=== PATIENT | male | born 1970 | race Caucasian/White ===

== ENCOUNTER 2019-04-13 21:19 | Observation (INO) ==
[2019-04-13] MEDS ORDERED: 0.9 % Sodium Chloride 1,000 ML IVC ONE (21:50)
[2019-04-13] MEDS ORDERED: *HR* Promethazine 25 MG/ML VIAL IVP ONE (21:50)
[2019-04-13 22:30] LABS: Basophils % 0.3 %; Eosinophils % 0.2 %; Hematocrit 38.4 % (37.5-50.1); Hemoglobin 11.9 g/dL (12.9-16.9); Immature Granulocytes % 0.3 % (0-4); Lymphocytes # 1.6 K/mcL (0.6-4.6); Lymphocytes % 17.9 %; Mean Corpuscular Hemoglobin 27.7 pg (28.0-33.3); Mean Corpuscular Volume 89.5 fL (83.0-100.0); Mean Platelet Volume 11.7 fL (9.4-12.4); Monocytes # 0.9 K/mcL (0.0-1.3); Monocytes % 10.5 %; Neutrophils # 6.2 K/mcL (1.6-8.9); Platelet Count 242 K/mcL (140-400); Red Blood Count 4.29 M/mcL (4.19-5.50); Red Cell Distribution Width 14.4 % (11.5-14.5); Segmented Neutrophils % 70.8 %; White Blood Count 8.8 K/mcL (4.3-11.1)
[2019-04-13] MEDS ORDERED: Isovue-370 500 ML BOTTLE IVP ONE (22:48)
[2019-04-13 22:51] LABS: Alanine Aminotransferase 21 Units/L (7-52); Albumin/Globulin Ratio 1.1 (1.1-2.2); Alkaline Phosphatase 143 Units/L (34-104); Aspartate Amino Transferase 19 Units/L (13-39); BUN/Creatinine Ratio 25 (6-26); Bilirubin,Direct 0.2 mg/dL (0.0-0.2); Bilirubin,Indirect 0.3 mg/dL (0.0-1.0); Bilirubin,Total 0.5 mg/dL (0.3-1.0); Blood Urea Nitrogen 28 mg/dL (6-20); Calcium 9.4 mg/dL (8.6-10.3); Carbon Dioxide 27 mEq/L (23-29); Chloride 99 mEq/L (98-107); Globulin 3.5 g/dL (2.4-3.5); Glucose 126 mg/dL (70-105); Lipase 15 Units/L (11-82); Magnesium 1.9 mg/dL (1.6-2.6); Osmolality,Calculated 285 (280-300); Phosphorous 4.8 mg/dL (2.7-4.5); Potassium 5.2 mEq/L (3.5-5.1); Sodium 134 mEq/L (136-145); Total Protein 7.5 g/dL (6.4-8.9); eGFR For African Americans > 60 (> 60); eGFR For Non-African Americans > 60 (> 60)
[2019-04-13 23:05] LABS: Thyroid Stimulating Hormone 1.999 mcIU/mL (0.340-5.600)
[2019-04-13] MEDS ORDERED: Aspirin 81 MG TAB.CHEW PO ONE (23:42)
[2019-04-14 00:40] LABS: Bilirubin,Urine Negative (Negative); Blood,Urine Negative (Negative); Clarity,Urine Clear (Clear); Color,Urine Yellow (Yellow); Glucose,Urine (UA) Normal (Normal); Ketones,Urine Negative (Negative); Leukocyte Esterase,Urine Negative (Negative); Nitrite,Urine Negative (Negative); Protein,Urine Trace mg/dL (Neg-Trace); Urobilinogen,Urine Normal (Normal)
[2019-04-14] MEDS ORDERED: Acetaminophen 325 MG TABLET PO PRN (01:57)
[2019-04-14] MEDS ORDERED: 0.9 % Sodium Chloride 1,000 ML IVC SCH (02:15)
[2019-04-14 02:39] LABS: Amphetamine Screen,Urine Negative ng/mL (Cutoff=1000); Barbiturate Screen,Urine Negative ng/mL (Cutoff=200); Benzodiazepines Screen,Urine Negative ng/mL (Cutoff=200); Cannabinoid Screen,Urine Negative ng/mL (Cutoff = 50); Cocaine Screen,Urine Negative ng/mL (Cutoff= 300); Opiate Screen,Urine Negative ng/mL (Cutoff=300); Phencyclidine Screen,Urine Negative ng/mL (Cutoff=25)
[2019-04-14] MEDS ORDERED: *HR* Heparin 5,000 UNIT/ML VIAL SQ SCH (06:00)
[2019-04-14 08:04] LABS: BUN/Creatinine Ratio 26 (6-26); Blood Urea Nitrogen 23 mg/dL (6-20); Calcium 8.7 mg/dL (8.6-10.3); Carbon Dioxide 28 mEq/L (23-29); Chloride 99 mEq/L (98-107); Glucose 99 mg/dL (70-105); Magnesium 1.9 mg/dL (1.6-2.6); Osmolality,Calculated 290 (280-300); Potassium 4.6 mEq/L (3.5-5.1); Sodium 138 mEq/L (136-145); eGFR For African Americans > 60 (> 60); eGFR For Non-African Americans > 60 (> 60)
[2019-04-14 08:07] LABS: Troponin I 0.04 ng/mL (< 0.04)
[2019-04-14] MEDS: levETIRAcetam 250 MG TABLET PO SCH ×2 (08:44→19:59)
[2019-04-14] MEDS ORDERED: *HR* Heparin 5,000 UNIT/ML VIAL IVP PRN ×2 (12:04)
[2019-04-14 13:52] LABS: Red Cell Distribution Width 14.5 % (11.5-14.5)
[2019-04-14 13:54] LABS: INR 1.3; Prothrombin Time 14.4 Seconds (9.4-12.1)
[2019-04-14 13:57] LABS: Hematocrit 34.4 % (37.5-50.1); Hemoglobin 10.8 g/dL (12.9-16.9); Mean Corpuscular HGB Conc 31.4 g/dL (31.6-35.5); Mean Corpuscular Hemoglobin 27.8 pg (28.0-33.3); Mean Corpuscular Volume 88.4 fL (83.0-100.0); Mean Platelet Volume 12.5 fL (9.4-12.4); Platelet Count 204 K/mcL (140-400); Red Blood Count 3.89 M/mcL (4.19-5.50); White Blood Count 6.2 K/mcL (4.3-11.1)
[2019-04-14 14:05] LABS: Estimated Average Glucose 131 mg/dl
[2019-04-14] MEDS: Heparin 25,000 UNIT/250 ML D5W 25,000 UNIT/250 ML IV.SOLN IVC SCH (14:09)
[2019-04-14] MEDS: Ondansetron 4 MG/2 ML VIAL IVP PRN (18:49)
[2019-04-14] MEDS ORDERED: rOPINIRole 0.25 MG TABLET PO SCH (21:00)
[2019-04-14] MEDS: Nystatin POWDER 30 GM BOTTLE TP SCH (21:55)
[2019-04-15] MEDS: Heparin 25,000 UNIT/250 ML D5W 25,000 UNIT/250 ML IV.SOLN IVC SCH (02:30)
[2019-04-15 05:21] LABS: Hematocrit 33.4 % (37.5-50.1); Hemoglobin 10.5 g/dL (12.9-16.9); Mean Corpuscular HGB Conc 31.4 g/dL (31.6-35.5); Mean Corpuscular Hemoglobin 27.6 pg (28.0-33.3); Mean Corpuscular Volume 87.9 fL (83.0-100.0); Mean Platelet Volume 12.8 fL (9.4-12.4); Platelet Count 191 K/mcL (140-400); Red Cell Distribution Width 14.5 % (11.5-14.5); White Blood Count 6.6 K/mcL (4.3-11.1)
[2019-04-15 05:41] LABS: BUN/Creatinine Ratio 22 (6-26); Blood Urea Nitrogen 17 mg/dL (6-20); Calcium 8.9 mg/dL (8.6-10.3); Carbon Dioxide 28 mEq/L (23-29); Chloride 100 mEq/L (98-107); Glucose 87 mg/dL (70-105); Osmolality,Calculated 281 (280-300); Potassium 4.1 mEq/L (3.5-5.1); Sodium 135 mEq/L (136-145); eGFR For African Americans > 60 (> 60); eGFR For Non-African Americans > 60 (> 60)
[2019-04-15] MEDS: levETIRAcetam 250 MG TABLET PO SCH ×2 (08:15→20:10)
[2019-04-15] MEDS: Aspirin Enteric Coated 81 MG Tablet PO SCH (08:15)
[2019-04-15] MEDS: Nystatin POWDER 30 GM BOTTLE TP SCH ×2 (08:18→20:29)
[2019-04-15] MEDS: Gabapentin 300 MG CAPSULE PO SCH (17:26)
[2019-04-15] MEDS: Ondansetron 4 MG/2 ML VIAL IVP PRN (18:40)
[2019-04-16] MEDS: Heparin 25,000 UNIT/250 ML D5W 25,000 UNIT/250 ML IV.SOLN IVC SCH ×3 (01:02→21:21)
[2019-04-16 02:02] LABS: Hematocrit 36.5 % (37.5-50.1); Hemoglobin 11.4 g/dL (12.9-16.9); Mean Corpuscular HGB Conc 31.2 g/dL (31.6-35.5); Mean Corpuscular Hemoglobin 27.2 pg (28.0-33.3); Mean Corpuscular Volume 87.1 fL (83.0-100.0); Mean Platelet Volume 12.8 fL (9.4-12.4); Platelet Count 221 K/mcL (140-400); Red Blood Count 4.19 M/mcL (4.19-5.50); Red Cell Distribution Width 14.4 % (11.5-14.5); White Blood Count 7.1 K/mcL (4.3-11.1)
[2019-04-16 02:21] LABS: BUN/Creatinine Ratio 19 (6-26); Blood Urea Nitrogen 14 mg/dL (6-20); Calcium 9.4 mg/dL (8.6-10.3); Carbon Dioxide 27 mEq/L (23-29); Chloride 100 mEq/L (98-107); Glucose 93 mg/dL (70-105); Osmolality,Calculated 284 (280-300); Sodium 137 mEq/L (136-145); eGFR For African Americans > 60 (> 60); eGFR For Non-African Americans > 60 (> 60)
[2019-04-16] MEDS ORDERED: Melatonin 3 MG TABLET PO PRN (04:27)
[2019-04-16] MEDS: Gabapentin 300 MG CAPSULE PO SCH ×2 (07:38→20:55)
[2019-04-16] MEDS: Aspirin Enteric Coated 81 MG Tablet PO SCH (07:38)
[2019-04-16] MEDS: levETIRAcetam 250 MG TABLET PO SCH ×2 (07:38→20:54)
[2019-04-16] MEDS: Nystatin POWDER 30 GM BOTTLE TP SCH ×2 (07:50→20:55)
[2019-04-16] MEDS ORDERED: Gabapentin 300 MG CAPSULE PO ONE ×2 (12:00)
[2019-04-16] MEDS: *HR* OxyCODONE Immed Rel 5 MG TABLET PO PRN ×2 (12:26→20:58)
[2019-04-16] MEDS ORDERED: Heparin 1,000 UNITS/500 mL 500 ML ONE (16:05)
[2019-04-16] MEDS ORDERED: ISOVUE-370 200 ML INFUS..BTL ONE (16:05)
[2019-04-16] MEDS ORDERED: 0.9 % Sodium Chloride 1,000 ML ONE (16:05)
[2019-04-16] MEDS ORDERED: Nitroglycerin 1,000 MCG/10 ML VIAL IV ONE (16:05)
[2019-04-16] MEDS ORDERED: *HR* Heparin 10,000 UNIT/10 ML VIAL ONE (16:05)
[2019-04-16] MEDS ORDERED: *HR* Midazolam HCl 2 MG/2 ML VIAL ONE (16:51)
[2019-04-16] MEDS ORDERED: *HR* FentaNYL (PF) 100 MCG/2 ML VIAL ONE (16:51)
[2019-04-16] MEDS ORDERED: Verapamil 5 MG/2 ML VIAL ONE (17:04)
[2019-04-17 03:17] LABS: Hematocrit 34.5 % (37.5-50.1); Hemoglobin 11.6 g/dL (12.9-16.9); Mean Corpuscular HGB Conc 33.6 g/dL (31.6-35.5); Mean Corpuscular Hemoglobin 27.8 pg (28.0-33.3); Mean Corpuscular Volume 82.7 fL (83.0-100.0); Platelet Count 239 K/mcL (140-400); Red Blood Count 4.17 M/mcL (4.19-5.50); Red Cell Distribution Width 14.4 % (11.5-14.5); White Blood Count 6.7 K/mcL (4.3-11.1)
[2019-04-17 03:24] LABS: BUN/Creatinine Ratio 16 (6-26); Blood Urea Nitrogen 13 mg/dL (6-20); Calcium 8.6 mg/dL (8.6-10.3); Carbon Dioxide 26 mEq/L (23-29); Chloride 102 mEq/L (98-107); Glucose 95 mg/dL (70-105); Osmolality,Calculated 286 (280-300); Potassium 4.1 mEq/L (3.5-5.1); Sodium 138 mEq/L (136-145); eGFR For African Americans > 60 (> 60); eGFR For Non-African Americans > 60 (> 60)
[2019-04-17] MEDS: *HR* OxyCODONE Immed Rel 5 MG TABLET PO PRN ×2 (03:40→09:54)
[2019-04-17 07:18] VITALS: BP 147/62
[2019-04-17] MEDS: Gabapentin 300 MG CAPSULE PO SCH (07:44)
[2019-04-17] MEDS: levETIRAcetam 250 MG TABLET PO SCH (07:44)
[2019-04-17] MEDS: Nystatin POWDER 30 GM BOTTLE TP SCH (07:44)
[2019-04-17] MEDS: Aspirin Enteric Coated 81 MG Tablet PO SCH (07:44)
[2019-04-17] MEDS: Heparin 25,000 UNIT/250 ML D5W 25,000 UNIT/250 ML IV.SOLN IVC SCH (08:36)
== END 2019-04-17 13:07 | disposition home or self-care (01) ==
LOC: EMEROOARM 21:19 → 3BNU 21:19 → SUATTDRO 04-14 01:09 → 2NENU 04-14 01:49
PROVIDERS: ADMIT Internal Medicine; ATTEND Family Medicine

== ENCOUNTER 2019-11-13 02:01 | Inpatient (IN) ==
[2019-11-13 02:19] LABS: ABG Base Excess 1 mEq/L (-2 to 3); ABG HCO3 27 mEq/L (21-27); ABG Oxygen Saturation 99 % (95-98); ABG PCO2 46 mmHg (35-45); ABG PH 7.38 pH Units (7.32-7.45); ABG PO2 125 mmHg (85-104); ABG TCO2 29 mEq/L (20-26)
[2019-11-13 02:30] LABS: Basophils % 0.3 %; Eosinophils # 0.1 K/mcL (0.0-0.6); Eosinophils % 0.6 %; Hematocrit 39.6 % (37.5-50.1); Hemoglobin 12.5 g/dL (12.9-16.9); Immature Granulocytes % 0.3 % (0-4); Lymphocytes # 3.4 K/mcL (0.6-4.6); Mean Corpuscular HGB Conc 31.6 g/dL (31.6-35.5); Mean Corpuscular Hemoglobin 26.6 pg (28.0-33.3); Mean Corpuscular Volume 84.3 fL (83.0-100.0); Mean Platelet Volume 11.7 fL (9.4-12.4); Monocytes # 1.3 K/mcL (0.0-1.3); Monocytes % 11.6 %; Neutrophils # 6.7 K/mcL (1.6-8.9); Platelet Count 295 K/mcL (140-400); Red Cell Distribution Width 15.1 % (11.5-14.5); Segmented Neutrophils % 58.2 %; White Blood Count 11.6 K/mcL (4.3-11.1)
[2019-11-13 02:36] LABS: INR 1.2; Prothrombin Time 13.7 Seconds (9.4-12.1)
[2019-11-13 02:53] LABS: Alanine Aminotransferase 16 Units/L (7-52); Albumin 4.2 g/dL (3.5-5.7); Albumin/Globulin Ratio 1.1 (1.1-2.2); Alkaline Phosphatase 122 Units/L (34-104); Aspartate Amino Transferase 20 Units/L (13-39); BUN/Creatinine Ratio 25 (6-26); Bilirubin,Total 0.8 mg/dL (0.3-1.0); Blood Urea Nitrogen 26 mg/dL (6-20); Carbon Dioxide 25 mEq/L (23-29); Chloride 100 mEq/L (98-107); Globulin 3.9 g/dL (2.4-3.5); Glucose 136 mg/dL (70-105); Magnesium 1.9 mg/dL (1.6-2.6); Osmolality,Calculated 287 (280-300); Potassium 3.8 mEq/L (3.5-5.1); Sodium 135 mEq/L (136-145); Total Protein 8.1 g/dL (6.4-8.9); Troponin I < 0.03 ng/mL (< 0.04); eGFR For African Americans > 60 (> 60); eGFR For Non-African Americans > 60 (> 60)
[2019-11-13] MEDS ORDERED: Ketamine *HR* 500 MG/10 ML MDV ONE (03:28)
[2019-11-13] MEDS ORDERED: Dexmedetomidine HCl 400 MCG/100 ML MLS IVC ONE (03:47)
[2019-11-13] MEDS ORDERED: Piperacillin/Tazobactam 3.375 GM in 0.9 % Sodium Chloride Mini Bag 100 ML IVPB ONE (03:48)
[2019-11-13] MEDS ORDERED: Ketamine *HR* 500 MG/10 ML MDV IVP ONE (04:16)
[2019-11-13] MEDS ORDERED: *HR* Succinylcholine 200 MG/10 ML VIAL IVP ONE (04:16)
[2019-11-13] MEDS ORDERED: Dexmedetomidine HCl 400 MCG/100 ML MLS IVC SCH (04:30)
[2019-11-13] MEDS: FentaNYL (PF) 1,000 MCG/100 ML IV.SOLN IVC SCH ×3 (04:38→19:36)
[2019-11-13] MEDS ORDERED: *HR* Midazolam HCl 5 MG/5 ML VIAL IVP ONE (04:41)
[2019-11-13] MEDS ORDERED: *HR* Midazolam HCl 2 MG/2 ML VIAL ONE (04:42)
[2019-11-13 04:53] LABS: Amphetamine Screen,Urine Negative ng/mL (Cutoff=1000); Barbiturate Screen,Urine Negative ng/mL (Cutoff=200); Benzodiazepines Screen,Urine Negative ng/mL (Cutoff=200); Cannabinoid Screen,Urine Negative ng/mL (Cutoff = 50); Cocaine Screen,Urine Negative ng/mL (Cutoff= 300); Opiate Screen,Urine Positive ng/mL (Cutoff=300); Phencyclidine Screen,Urine Negative ng/mL (Cutoff=25)
[2019-11-13] MEDS ORDERED: Vancomycin 2,000 MG/520 ML IV.SOLN IVPB ONE (05:00)
[2019-11-13] MEDS ORDERED: Naloxone 0.4 MG/ML INJ IVP PRN ×2 (05:40→06:20)
[2019-11-13] MEDS ORDERED: Artificial Tears SOLN 15 ML BOTTLE BOTH EYES PRN (06:20)
[2019-11-13] MEDS ORDERED: Perflutren Lipid Microsphere 1.3 ML in 0.9 % Sodium Chloride 8.7 ML IVP ONE ×2 (06:29→07:07)
[2019-11-13] MEDS ORDERED: Furosemide 40 MG/4 ML VIAL IVP ONE (06:33)
[2019-11-13 06:45] LABS: ABG Base Excess 2 mEq/L (-2 to 3); ABG HCO3 30 mEq/L (21-27); ABG Oxygen Saturation 100 % (95-98); ABG PCO2 56 mmHg (35-45); ABG PH 7.33 pH Units (7.32-7.45); ABG PO2 371 mmHg (85-104); ABG TCO2 31 mEq/L (20-26); Blood Gas Modality ASSIST CONTROL; Blood Gas VT 500 cc
[2019-11-13] MEDS: Artificial Tears SOLN 15 ML BOTTLE BOTH EYES SCH ×5 (06:59→23:18)
[2019-11-13] MEDS ORDERED: *HR* Midazolam HCl 2 MG/2 ML VIAL IVP PRN (07:25)
[2019-11-13] MEDS: Pantoprazole 40 MG VIAL IVP SCH (07:44)
[2019-11-13] MEDS: Chlorhexidine Rinse 15 ML MOUTHWASH MM SCH ×2 (07:44→19:52)
[2019-11-13] MEDS: cefTRIAXone 1,000 MG in Water for inj. (sterile) 10 ML IVP SCH (08:31)
[2019-11-13 08:37] LABS: Bilirubin,Urine Negative (Negative); Blood,Urine Negative (Negative); Clarity,Urine Clear (Clear); Color,Urine Colorless (Yellow); Glucose,Urine (UA) Normal (Normal); Ketones,Urine Negative (Negative); Leukocyte Esterase,Urine Negative (Negative); Nitrite,Urine Negative (Negative); Protein,Urine Negative (Neg-Trace); Specific Gravity,Urine 1.007 (1.010-1.025); Urobilinogen,Urine Normal (Normal)
[2019-11-13] MEDS: Midazolam HCl 50 MG/100 ML IV.SOLN IVC SCH (08:50)
[2019-11-13] MEDS: Doxycycline 100 MG in 0.9 % Sodium Chloride Mini Bag 100 ML IVPB SCH ×2 (08:50→19:52)
[2019-11-13] MEDS ORDERED: Potassium Phosphate 44 MEQ in 0.9 % Sodium Chloride 250 ML IVPB PRN (09:16)
[2019-11-13 09:18] LABS: Adenovirus Not Detected (Not Detect); Coronavirus 229E Not Detected (Not Detect); Coronavirus HKU1 Not Detected (Not Detect); Coronavirus NL63 Not Detected (Not Detect); Coronavirus OC43 Not Detected (Not Detect); Human Metapneumovirus Not Detected (Not Detect); Human Rhinovirus/Enterovirus Not Detected (Not Detect)
[2019-11-13 09:19] LABS: Bordetella Pertussis Not Detected (Not Detect); Chlamydophila pneumoniae Not Detected (Not Detect); Influenza A Subtype 2009 H1 Not Detected (Not Detect); Influenza B Not Detected (Not Detect); Mycoplasma pneumoniae Not Detected (Not Detect); Parainfluenza Virus 1 Not Detected (Not Detect); Parainfluenza Virus 2 Not Detected (Not Detect); Parainfluenza Virus 3 Not Detected (Not Detect); Parainfluenza Virus 4 Not Detected (Not Detect); Respiratory Syncytial Virus Not Detected (Not Detect)
[2019-11-13] MEDS: Furosemide 80 MG in 0.9 % Sodium Chloride 50 ML IVPB SCH ×2 (10:02→22:50)
[2019-11-13] MEDS: *HR* Heparin 5,000 UNIT/ML VIAL SQ SCH ×2 (13:00→22:33)
[2019-11-13 13:24] LABS: VBG Ionized Calcium 0.97 mmol/L (1.15-1.35)
[2019-11-13] MEDS: Calcium Gluconate 1gm/50mL 1 GM/50 ML BAG IVPB PRN (13:34)
[2019-11-13 14:14] LABS: BUN/Creatinine Ratio 25 (6-26); Blood Urea Nitrogen 22 mg/dL (6-20); Calcium 8.2 mg/dL (8.6-10.3); Carbon Dioxide 26 mEq/L (23-29); Chloride 100 mEq/L (98-107); Glucose 98 mg/dL (70-105); Magnesium 2.1 mg/dL (1.6-2.6); Osmolality,Calculated 277 (280-300); Phosphorous 3.8 mg/dL (2.7-4.5); Potassium 7.3 mEq/L (3.5-5.1); Sodium 132 mEq/L (136-145); eGFR For African Americans > 60 (> 60); eGFR For Non-African Americans > 60 (> 60)
[2019-11-13 23:07] LABS: VBG Ionized Calcium 1.11 mmol/L (1.15-1.35)
[2019-11-13 23:18] LABS: Potassium 4.3 mEq/L (3.5-5.1)
[2019-11-14] MEDS: FentaNYL (PF) 1,000 MCG/100 ML IV.SOLN IVC SCH ×4 (01:07→15:12)
[2019-11-14] MEDS: Artificial Tears SOLN 15 ML BOTTLE BOTH EYES SCH ×6 (04:12→23:34)
[2019-11-14 04:20] LABS: ABG Base Excess 7 mEq/L (-2 to 3); ABG HCO3 33 mEq/L (21-27); ABG Oxygen Saturation 95 % (95-98); ABG PCO2 52 mmHg (35-45); ABG PH 7.41 pH Units (7.32-7.45); ABG PO2 78 mmHg (85-104); ABG TCO2 35 mEq/L (20-26); Blood Gas Modality ASSIST CONTROL; Blood Gas VT 500 cc
[2019-11-14 05:29] LABS: Hematocrit 34.3 % (37.5-50.1); Hemoglobin 10.9 g/dL (12.9-16.9); Mean Corpuscular HGB Conc 31.8 g/dL (31.6-35.5); Mean Corpuscular Hemoglobin 26.9 pg (28.0-33.3); Mean Corpuscular Volume 84.7 fL (83.0-100.0); Mean Platelet Volume 11.8 fL (9.4-12.4); Platelet Count 214 K/mcL (140-400); Red Blood Count 4.05 M/mcL (4.19-5.50); Red Cell Distribution Width 15.1 % (11.5-14.5); White Blood Count 8.4 K/mcL (4.3-11.1)
[2019-11-14] MEDS: *HR* Heparin 5,000 UNIT/ML VIAL SQ SCH ×3 (05:46→20:46)
[2019-11-14 05:48] LABS: Alanine Aminotransferase 12 Units/L (7-52); Albumin 3.5 g/dL (3.5-5.7); Albumin/Globulin Ratio 1.1 (1.1-2.2); Alkaline Phosphatase 100 Units/L (34-104); Aspartate Amino Transferase 17 Units/L (13-39); BUN/Creatinine Ratio 19 (6-26); Bilirubin,Total 0.6 mg/dL (0.3-1.0); Blood Urea Nitrogen 15 mg/dL (6-20); Calcium 8.7 mg/dL (8.6-10.3); Carbon Dioxide 33 mEq/L (23-29); Chloride 98 mEq/L (98-107); Globulin 3.2 g/dL (2.4-3.5); Glucose 112 mg/dL (70-105); Magnesium 1.9 mg/dL (1.6-2.6); Osmolality,Calculated 284 (280-300); Phosphorous 2.9 mg/dL (2.7-4.5); Potassium 3.8 mEq/L (3.5-5.1); Sodium 136 mEq/L (136-145); Total Protein 6.7 g/dL (6.4-8.9); eGFR For African Americans > 60 (> 60); eGFR For Non-African Americans > 60 (> 60)
[2019-11-14 06:01] LABS: Thyroid Stimulating Hormone 2.827 mcIU/mL (0.340-5.600)
[2019-11-14] MEDS ORDERED: Potassium Chloride Elixir 20 MEQ/15 ML UDC GTUBE ONE (06:02)
[2019-11-14] MEDS: Midazolam HCl 50 MG/100 ML IV.SOLN IVC SCH ×2 (06:14→20:44)
[2019-11-14] MEDS: cefTRIAXone 1,000 MG in Water for inj. (sterile) 10 ML IVP SCH (08:09)
[2019-11-14] MEDS: Chlorhexidine Rinse 15 ML MOUTHWASH MM SCH ×2 (08:09→19:42)
[2019-11-14] MEDS: Pantoprazole 40 MG VIAL IVP SCH (08:09)
[2019-11-14] MEDS: Doxycycline 100 MG in 0.9 % Sodium Chloride Mini Bag 100 ML IVPB SCH ×2 (08:10→19:42)
[2019-11-14] MEDS: Furosemide 80 MG in 0.9 % Sodium Chloride 50 ML IVPB SCH ×2 (09:04→20:45)
[2019-11-14 10:38] LABS: VBG Ionized Calcium 1.04 mmol/L (1.15-1.35)
[2019-11-14] MEDS: Calcium Gluconate 1gm/50mL 1 GM/50 ML BAG IVPB PRN (10:49)
[2019-11-14 10:53] LABS: Magnesium 2.2 mg/dL (1.6-2.6); Phosphorous 2.8 mg/dL (2.7-4.5); Potassium 3.9 mEq/L (3.5-5.1)
[2019-11-14] MEDS: levETIRAcetam 500 MG/5 ML UDC GTUBE SCH (19:41)
[2019-11-14] MEDS: FentaNYL (PF) 2,500 MCG/50 ML IV.SOLN IVC SCH (20:44)
[2019-11-15 04:14] LABS: VBG Ionized Calcium 1.08 mmol/L (1.15-1.35)
[2019-11-15 04:17] LABS: Hematocrit 37.9 % (37.5-50.1); Hemoglobin 11.6 g/dL (12.9-16.9); Mean Corpuscular HGB Conc 30.6 g/dL (31.6-35.5); Mean Corpuscular Hemoglobin 25.8 pg (28.0-33.3); Mean Corpuscular Volume 84.2 fL (83.0-100.0); Mean Platelet Volume 12.2 fL (9.4-12.4); Platelet Count 256 K/mcL (140-400); Red Cell Distribution Width 15.1 % (11.5-14.5); White Blood Count 7.2 K/mcL (4.3-11.1)
[2019-11-15 04:31] LABS: Alanine Aminotransferase 10 Units/L (7-52); Albumin 3.6 g/dL (3.5-5.7); Alkaline Phosphatase 101 Units/L (34-104); Aspartate Amino Transferase 14 Units/L (13-39); BUN/Creatinine Ratio 23 (6-26); Bilirubin,Total 0.5 mg/dL (0.3-1.0); Blood Urea Nitrogen 17 mg/dL (6-20); Calcium 9.1 mg/dL (8.6-10.3); Carbon Dioxide 32 mEq/L (23-29); Chloride 97 mEq/L (98-107); Globulin 3.7 g/dL (2.4-3.5); Glucose 118 mg/dL (70-105); Osmolality,Calculated 283 (280-300); Phosphorous 3.6 mg/dL (2.7-4.5); Potassium 3.9 mEq/L (3.5-5.1); Sodium 135 mEq/L (136-145); Total Protein 7.3 g/dL (6.4-8.9); eGFR For African Americans > 60 (> 60); eGFR For Non-African Americans > 60 (> 60)
[2019-11-15] MEDS: Artificial Tears SOLN 15 ML BOTTLE BOTH EYES SCH ×2 (04:37→09:24)
[2019-11-15] MEDS: Calcium Gluconate 1gm/50mL 1 GM/50 ML BAG IVPB PRN ×2 (04:46→14:50)
[2019-11-15] MEDS: FentaNYL (PF) 2,500 MCG/50 ML IV.SOLN IVC SCH (04:46)
[2019-11-15] MEDS: *HR* Heparin 5,000 UNIT/ML VIAL SQ SCH ×3 (04:47→20:59)
[2019-11-15 04:57] LABS: ABG Base Excess 7 mEq/L (-2 to 3); ABG HCO3 33 mEq/L (21-27); ABG Oxygen Saturation 94 % (95-98); ABG PCO2 51 mmHg (35-45); ABG PH 7.42 pH Units (7.32-7.45); ABG PO2 70 mmHg (85-104); ABG TCO2 34 mEq/L (20-26); Blood Gas Modality ASSIST CONTROL; Blood Gas VT 500 cc
[2019-11-15] MEDS: Midazolam HCl 50 MG/100 ML IV.SOLN IVC SCH (08:20)
[2019-11-15] MEDS: Chlorhexidine Rinse 15 ML MOUTHWASH MM SCH (09:24)
[2019-11-15] MEDS: cefTRIAXone 1,000 MG in Water for inj. (sterile) 10 ML IVP SCH (09:31)
[2019-11-15] MEDS: Pantoprazole 40 MG VIAL IVP SCH (09:32)
[2019-11-15] MEDS: Doxycycline 100 MG in 0.9 % Sodium Chloride Mini Bag 100 ML IVPB SCH (09:32)
[2019-11-15] MEDS: Furosemide 80 MG in 0.9 % Sodium Chloride 50 ML IVPB SCH ×2 (10:22→22:10)
[2019-11-15] MEDS: levETIRAcetam 250 MG TABLET PO SCH ×2 (12:33→20:59)
[2019-11-15 13:02] LABS: VBG Ionized Calcium 1.09 mmol/L (1.15-1.35)
[2019-11-15] MEDS ORDERED: *HR* OxyCODONE Immed Rel 5 MG TABLET PO PRN (16:04)
[2019-11-15] MEDS ORDERED: Doxycycline 100 MG CAPSULE PO SCH (21:00)
[2019-11-15] MEDS ORDERED: Sennosides/Docusate Sodium TABLET PO SCH (21:00)
[2019-11-15] MEDS ORDERED: Naloxone 0.4 MG/ML INJ IVP PRN (22:53)
[2019-11-16] MEDS: *HR* OxyCODONE Immed Rel 5 MG TABLET PO PRN ×3 (00:16→19:18)
[2019-11-16 03:05] LABS: Hematocrit 41.3 % (37.5-50.1); Hemoglobin 12.8 g/dL (12.9-16.9); Mean Corpuscular Hemoglobin 25.7 pg (28.0-33.3); Mean Corpuscular Volume 82.8 fL (83.0-100.0); Mean Platelet Volume 12.1 fL (9.4-12.4); Platelet Count 276 K/mcL (140-400); Red Blood Count 4.99 M/mcL (4.19-5.50); Red Cell Distribution Width 15.1 % (11.5-14.5); White Blood Count 8.4 K/mcL (4.3-11.1)
[2019-11-16 03:07] LABS: Alanine Aminotransferase 106 Units/L (7-52); Albumin 3.8 g/dL (3.5-5.7); Albumin/Globulin Ratio 0.9 (1.1-2.2); Alkaline Phosphatase 272 Units/L (34-104); Aspartate Amino Transferase 196 Units/L (13-39); BUN/Creatinine Ratio 23 (6-26); Bilirubin,Total 0.9 mg/dL (0.3-1.0); Blood Urea Nitrogen 19 mg/dL (6-20); Calcium 9.3 mg/dL (8.6-10.3); Carbon Dioxide 30 mEq/L (23-29); Chloride 93 mEq/L (98-107); Globulin 4.2 g/dL (2.4-3.5); Glucose 103 mg/dL (70-105); Osmolality,Calculated 277 (280-300); Phosphorous 4.8 mg/dL (2.7-4.5); Potassium 3.8 mEq/L (3.5-5.1); Sodium 132 mEq/L (136-145); eGFR For African Americans > 60 (> 60); eGFR For Non-African Americans > 60 (> 60)
[2019-11-16] MEDS: *HR* Heparin 5,000 UNIT/ML VIAL SQ SCH ×3 (05:38→20:56)
[2019-11-16] MEDS ORDERED: Furosemide 20 MG TABLET PO SCH (08:00)
[2019-11-16] MEDS ORDERED: cefTRIAXone 1,000 MG in Water for inj. (sterile) 10 ML IVP SCH (09:00)
[2019-11-16] MEDS: Sennosides/Docusate Sodium TABLET PO SCH ×2 (09:20→20:57)
[2019-11-16] MEDS: Doxycycline 100 MG CAPSULE PO SCH ×2 (09:20→20:57)
[2019-11-16] MEDS: levETIRAcetam 250 MG TABLET PO SCH ×2 (09:21→20:57)
[2019-11-16] MEDS: levETIRAcetam 500 MG/5 ML UDC GTUBE SCH (21:15)
[2019-11-16] MEDS: Artificial Tears SOLN 15 ML BOTTLE BOTH EYES SCH (21:16)
[2019-11-17] MEDS: *HR* OxyCODONE Immed Rel 5 MG TABLET PO PRN ×2 (01:26→11:13)
[2019-11-17 02:55] LABS: Albumin 3.9 g/dL (3.5-5.7); Albumin/Globulin Ratio 0.9 (1.1-2.2); Bilirubin,Direct 0.3 mg/dL (0.0-0.2); Bilirubin,Indirect 0.5 mg/dL (0.0-1.0); Bilirubin,Total 0.8 mg/dL (0.3-1.0); Globulin 4.2 g/dL (2.4-3.5); Total Protein 8.1 g/dL (6.4-8.9)
[2019-11-17 02:59] LABS: Alanine Aminotransferase 94 Units/L (7-52); Albumin 3.9 g/dL (3.5-5.7); Albumin/Globulin Ratio 0.9 (1.1-2.2); Alkaline Phosphatase 252 Units/L (34-104); Aspartate Amino Transferase 94 Units/L (13-39); BUN/Creatinine Ratio 31 (6-26); Bilirubin,Total 0.7 mg/dL (0.3-1.0); Blood Urea Nitrogen 33 mg/dL (6-20); Calcium 9.3 mg/dL (8.6-10.3); Carbon Dioxide 24 mEq/L (23-29); Chloride 94 mEq/L (98-107); Globulin 4.3 g/dL (2.4-3.5); Glucose 120 mg/dL (70-105); Osmolality,Calculated 282 (280-300); Phosphorous 4.1 mg/dL (2.7-4.5); Potassium 3.9 mEq/L (3.5-5.1); Sodium 132 mEq/L (136-145); Total Protein 8.2 g/dL (6.4-8.9); eGFR For African Americans > 60 (> 60); eGFR For Non-African Americans > 60 (> 60)
[2019-11-17] MEDS: *HR* Heparin 5,000 UNIT/ML VIAL SQ SCH (05:23)
[2019-11-17] MEDS ORDERED: Furosemide 40 MG TABLET PO SCH (09:00)
[2019-11-17 11:07] VITALS: BP 128/74
[2019-11-17] MEDS: Doxycycline 100 MG CAPSULE PO SCH (11:13)
[2019-11-17] MEDS: Sennosides/Docusate Sodium TABLET PO SCH (11:13)
[2019-11-17] MEDS: levETIRAcetam 250 MG TABLET PO SCH (11:13)
== END 2019-11-17 12:25 | disposition home or self-care (01) | DRG 917 ==
LOC: EMEROOARM 02:01 → SUATTDRO 05:16 → ICNU 05:16 → 2NNU 11-15 22:40 → 2ANU 11-16 15:35
PROVIDERS: ADMIT Student in an Organized Health Care Education/Training Program; ATTEND Internal Medicine